=== PATIENT | female | born 1950 | race Caucasian/White ===

== ENCOUNTER 2019-12-31 15:20 | Observation (INO) | payer MEDICARE, BC ==
[~2019-12-31] VITALS: Ht 165.1 cm; Wt 72.7 kg
--- NOTE | 2019-12-31 15:45 | NUR ---
TO CT WITH PT
--- NOTE | 2019-12-31 16:00 | NUR ---
BACK FROM CT, ZAINAB STROKE NURSE AT BEDSIDE.
[2019-12-31] MEDS ORDERED: LOSA1TAB41 PO (16:35)
[2019-12-31] MEDS ORDERED: PRAV40TA3 PO (16:35)
[2019-12-31] MEDS ORDERED: ESCI5TAB12 PO (16:35)
[2019-12-31 16:36] LABS: PARTIAL THROMBOPLASTIN TIME 26 SECONDS (22-32)
--- NOTE | 2019-12-31 16:37 | NUR ---
NEUROTELE DONE, NEUROLOGIST DX: TRANS GLOBAL AMNESIA
[2019-12-31 16:38] LABS: ALANINE AMINOTRANSFERASE 24 U/L (12-78); ALBUMIN 4.4 G/DL (3.4-5.0); ALBUMIN/GLOBULIN RATIO 1.3 (1.1-1.5); ALKALINE PHOSPHATASE 94 IU/L (46-116); ANION GAP 8 (8-16); ASPARTATE AMINO TRANSFERASE 20 U/L (10-37); BILIRUBIN,TOTAL 0.7 MG/DL (0.1-1.0); BLOOD UREA NITROGEN 20 MG/DL (7-18); BUN/CREATININE RATIO 22.2 (6.6-38.0); CALCIUM 9.2 MG/DL (8.5-10.1); CHLORIDE 103 MMOL/L (99-107); GLUCOSE 102 MG/DL (70-104); POTASSIUM 3.2 MMOL/L (3.5-5.1); SODIUM 140 MMOL/L (135-145); TOTAL CARBON DIOXIDE 28.9 MMOL/L (24-32); TOTAL PROTEIN 7.8 G/DL (6.4-8.2); eGFR 62 ML/MIN
[2019-12-31 16:41] LABS: TROPONIN I < 0.04 NG/ML (0.0-0.05)
[2019-12-31] MEDS ORDERED: CHOL100025 PO (16:41)
[2019-12-31 16:50] LABS: BASOPHILS % (AUTO) 0.3 % (0-1); EOSINOPHILS # (AUTO) 0.1 X10'3 (0-0.9); EOSINOPHILS % (AUTO) 1.3 % (0-6); HEMOGLOBIN 11.4 g/dl (12.0-16.0); LYMPHOCYTES # (AUTO) 1.5 X10'3 (1.1-4.8); LYMPHOCYTES % (AUTO) 24.5 % (21-51); MEAN CORPUSCULAR HEMOGLOBIN 23.4 PG (27.0-31.0); MEAN CORPUSCULAR HGB CONC 30.9 g/dL (33.0-36.5); MEAN CORPUSCULAR VOLUME 75.7 FL (78-98); MEAN PLATELET VOLUME 8.7 FL (7.4-10.4); MONOCYTES # (AUTO) 0.4 X10'3 (0-0.9); MONOCYTES % (AUTO) 6.8 % (2-12); NEUTROPHILS # (AUTO) 4.2 X10'3 (1.8-7.7); NEUTROPHILS % (AUTO) 67.1 % (42-75); PLATELET COUNT 277 X10'3 (140-440); RED BLOOD COUNT 4.88 X10'6 (4.20-5.60); RED CELL DISTRIBUTION WIDTH 18.6 % (11.5-14.5); WHITE BLOOD COUNT 6.3 X10'3 (4.5-11.0)
[2019-12-31] MEDS ORDERED: magnesium hydroxide 30ml (MOM) UD suspension PO PRN (16:55)
[2019-12-31] MEDS ORDERED: aspirin 81mg tablet.DR PO ONE (16:55)
[2019-12-31] MEDS ORDERED: mag hydrox/Alum hydrox/simeth 30ml oral suspension PO PRN (16:55)
[2019-12-31] MEDS ORDERED: acetaminophen 325mg tablet PO PRN (16:55)
[2019-12-31] MEDS ORDERED: ondansetron/PF 4mg/2ml inj IV PRN (16:55)
--- NOTE | 2019-12-31 17:04 | NUR ---
DR. OTT AT BEDSIDE FOR ADMIT
[2019-12-31] MEDS: normal saline 1000ml 1,000 ML IV SCH (17:13)
[2019-12-31 17:15] LABS: ANISOCYTOSIS 2+; ELLIPTOCYTES 1+; HYPOCHROMASIA 1+; MICROCYTOSIS 1+; PLATELET ESTIMATE NORMAL
[2019-12-31] MEDS ORDERED: potassium Cl 20 mEq SR tablet PO STA (18:00)
[2019-12-31] MEDS ORDERED: pravastatin 40mg tablet PO SCH (21:00)
[2019-12-31] MEDS: heparin, porcine 5000 units/ml vial SQ SCH (21:57)
[2019-12-31 22:05] VITALS: BP 147/69
[2020-01-01] MEDS: normal saline 1000ml 1,000 ML IV SCH (03:31)
[2020-01-01 05:35] LABS: ALBUMIN 3.7 G/DL (3.4-5.0); ANION GAP 5 (8-16); BLOOD UREA NITROGEN 11 MG/DL (7-18); BUN/CREATININE RATIO 15.7 (6.6-38.0); CALCIUM 8.6 MG/DL (8.5-10.1); CHLORIDE 108 MMOL/L (99-107); GLUCOSE 91 MG/DL (70-104); POTASSIUM 3.5 MMOL/L (3.5-5.1); SODIUM 142 MMOL/L (135-145); eGFR 83 ML/MIN
[2020-01-01 05:57] LABS: BASOPHILS % (AUTO) 0.8 % (0-1); EOSINOPHILS # (AUTO) 0.2 X10'3 (0-0.9); EOSINOPHILS % (AUTO) 3.5 % (0-6); HEMATOCRIT 33.5 % (35.0-45.0); HEMOGLOBIN 10.6 g/dl (12.0-16.0); LYMPHOCYTES # (AUTO) 2.4 X10'3 (1.1-4.8); LYMPHOCYTES % (AUTO) 45.3 % (21-51); MEAN CORPUSCULAR HEMOGLOBIN 23.5 PG (27.0-31.0); MEAN CORPUSCULAR HGB CONC 31.5 g/dL (33.0-36.5); MEAN CORPUSCULAR VOLUME 74.4 FL (78-98); MEAN PLATELET VOLUME 8.8 FL (7.4-10.4); MONOCYTES # (AUTO) 0.5 X10'3 (0-0.9); MONOCYTES % (AUTO) 9.8 % (2-12); NEUTROPHILS # (AUTO) 2.2 X10'3 (1.8-7.7); NEUTROPHILS % (AUTO) 40.6 % (42-75); PLATELET COUNT 237 X10'3 (140-440); RED CELL DISTRIBUTION WIDTH 18.1 % (11.5-14.5); WHITE BLOOD COUNT 5.4 X10'3 (4.5-11.0)
[2020-01-01 06:10] VITALS: BP 134/98
--- NOTE | 2020-01-01 06:35 | NUR ---
Patient in room [facility] 4010. I have received report from Jake ROONEY and had the opportunity to ask questions and assume patient care.
--- NOTE | 2020-01-01 07:03 | NUR ---
Paged Dr. Sifuentes about patient HR in mid 40's all night per radiotelegraph operator with the lowest being [id number]. Awaiting call back..I will page again in a little while if no call back. Addendum: 01/01/20 at 1451 by Luzmaria Miller RN Dr. Sifuentes aware of patients HR before discharge.
[2020-01-01] MEDS: heparin, porcine 5000 units/ml vial SQ SCH (07:28)
[2020-01-01] MEDS ORDERED: HYDROchlorothiazide 12.5mg capsule PO SCH (08:00)
[2020-01-01] MEDS ORDERED: losartan 50mg tablet PO SCH (08:00)
[2020-01-01] MEDS ORDERED: vitamin D (cholecalciferol) 1,000 unit tablet PO SCH (08:00)
[2020-01-01] MEDS ORDERED: aspirin 81mg tablet.DR PO SCH (08:00)
[2020-01-01] MEDS ORDERED: ESCITALOPRAM OXALATE 5 MG TABLET PO SCH (08:00)
[2020-01-01 10:00] VITALS: BP 155/82
[2020-01-01] MEDS ORDERED: LISI1TAB51 PO (10:32)
--- NOTE | 2020-01-01 13:21 | NUR ---
Patient discharged at time. Patient taught to follow up with pcp physician. Patient alert and appropriate and was walking floor this morning.
== END 2020-01-01 13:10 | disposition home or self-care (01) ==
LOC: ER 15:32 → ED HOLD 16:53 → EDBEDREQ 18:28 → ORTHO 4S 18:45
PROVIDERS: ADMIT Family Medicine; ATTEND Family Medicine
DX: G45.4 Transient global amnesia (principal); R41.0 Disorientation, unspecified; D64.9 Anemia, unspecified; E78.5 Hyperlipidemia, unspecified; I10 Essential (primary) hypertension; F41.9 Anxiety disorder, unspecified; Z96.653 Presence of artificial knee joint, bilateral; Z79.899 Other long term (current) drug therapy
CPT/HCPCS: 36415; 70450; 70551; 71045; 80048; 80053; 82948; 84484; 85025; 85610; 85730; 87081; 96360; 96361; 96372; 99285; G0378; J1644; J7030; 85008